=== PATIENT | female | born 1990 | race Caucasian/White ===

== ENCOUNTER 2017-09-20 02:54 | Inpatient (IN) | payer BC, OTHER ==
[~2017-09-20] VITALS: Ht 160 cm; Wt 82.7 kg
[~2017-09-20 02:54] MED LIST: BIRTH CONTROL; CIPR500T87 PO; METR500T PO; ONDA4TAB10 PO
[2017-09-20] MEDS ORDERED: ONDANSETRON 2MG/ML, 2ML IVPush ONE (03:30)
[2017-09-20] MEDS ORDERED: SODIUM CHLORIDE 0.9% 1,000ML IVBOLUS ONE (03:30)
[2017-09-20] MEDS ORDERED: HYDROmorphone 1 MG/ML, 1ML ONE ×2 (03:37→04:08)
[2017-09-20] MEDS ORDERED: ONDANSETRON 2MG/ML, 2ML ONE ×3 (03:37→08:07)
[2017-09-20] MEDS: HYDROmorphone 1 MG/ML, 1ML IVPush PRN ×2 (03:49→04:11)
[2017-09-20 03:51] LABS: HEMATOCRIT 45.1 % (34.6-47.8); HEMOGLOBIN 15.4 g/dL (11.7-16.4); WHITE BLOOD COUNT 16.2 x10^3/uL (3.4-10)
[2017-09-20 04:03] LABS: ASPARTATE AMINO TRANSFERASE 24 U/L (15-37); BLOOD UREA NITROGEN 11 mg/dL (7-18)
[2017-09-20 04:04] LABS: PATH.CAST-FLAG NOT PRESENT; SPERM-FLAG NOT PRESENT; SRC-FLAG NOT PRESENT; XTAL-FLAG NOT PRESENT; YLC-FLAG NOT PRESENT
[2017-09-20] MEDS ORDERED: OMNIPAQUE 350 MG/ML, 100ML BOTTLE ONE (04:31)
[2017-09-20] MEDS ORDERED: ACETAMINOPHEN 325 MG TABLET PO PRN ×2 (05:00→08:30)
[2017-09-20] MEDS ORDERED: HYDROmorphone 2 MG/ML, 1ML IVPush PRN (05:00)
[2017-09-20] MEDS ORDERED: ONDANSETRON 2MG/ML, 2ML IVPush PRN ×2 (05:00→08:30)
[2017-09-20] MEDS ORDERED: D5%-0.9% NACL 1,000 ML IV SCH (05:00)
[2017-09-20] MEDS ORDERED: PIPERACILLIN/TAZO/PMX 4.5GM 100 ML IV ONE (05:30)
[2017-09-20] MEDS ORDERED: HYDROmorphone 2 MG/ML, 1ML ONE (05:59)
[2017-09-20 06:40] VITALS: BP 121/63
[2017-09-20] MEDS ORDERED: EPINEPHRINE 1 MG/ML, 1ML ONE (07:15)
[2017-09-20] MEDS ORDERED: BUPIVACAINE/PF 0.5% ONE (07:15)
[2017-09-20] MEDS ORDERED: GLYCOPYRROLATE 0.2MG/1ML, 5ML ONE (08:07)
[2017-09-20] MEDS ORDERED: DEXAMETHASONE 4 MG/ML, 1ML ONE (08:07)
[2017-09-20] MEDS ORDERED: ROCURONIUM 10 MG/ML,10ML ONE (08:07)
[2017-09-20] MEDS ORDERED: MIDAZOLAM 1 MG/ML, 2ML ONE (08:07)
[2017-09-20] MEDS ORDERED: FENTANYL PF 250 MCG/5ML ONE (08:07)
[2017-09-20] MEDS ORDERED: PROPOFOL 10 MG/ML, 20ML ONE (08:07)
[2017-09-20] MEDS ORDERED: NEOSTIGMINE 1 MG/ML, 10ML ONE (08:07)
[2017-09-20] MEDS ORDERED: KETOROLAC 30 MG/1 ML ONE (08:07)
[2017-09-20] MEDS ORDERED: METOCLOPRAMIDE 5 MG/ML, 2ML ONE (08:07)
[2017-09-20] MEDS ORDERED: MEPERIDINE/PF 25MG/0.5ML IVPush PRN (08:30)
[2017-09-20] MEDS ORDERED: HYDROmorphone 1 MG/ML, 1ML IV PRN (08:30)
[2017-09-20] MEDS ORDERED: OXYcodone 5 MG/5 ML ORAL.SOL UDC PO PRN (08:30)
[2017-09-20] MEDS ORDERED: PROMETHAZINE 25 MG/ML, 1ML IV PRN (08:30)
[2017-09-20] MEDS ORDERED: MIDAZOLAM 1 MG/ML, 2ML IV PRN (08:30)
[2017-09-20] MEDS ORDERED: DIAZEPAM 5 MG/ML, 2ML IVPush PRN (08:30)
[2017-09-20] MEDS ORDERED: hydrALAzine 20 MG/ML, 1ML IV PRN (08:30)
[2017-09-20] MEDS ORDERED: ALBUTEROL/IPRATROPIUM 2.5MG/0.5MG, 3 ML NPPB PRN (08:30)
[2017-09-20] MEDS ORDERED: LORazepam 2 MG/ML, 1ML IVPush PRN (08:30)
[2017-09-20] MEDS ORDERED: LABETALOL 5MG/ML, 20ML IV PRN (08:30)
[2017-09-20] MEDS ORDERED: ACETAMINOPHEN 650 MG/20.3 ML UDC ONE (09:12)
[2017-09-20] MEDS ORDERED: OXYcodone 5 MG/5 ML ORAL.SOL UDC ONE (09:13)
[2017-09-20] MEDS ORDERED: ACETAMINOPHEN 325 MG TABLET ONE (09:13)
[2017-09-20] MEDS ORDERED: FENTANYL PF 100 MCG/2ML ONE (09:13)
[2017-09-20] MEDS: FENTANYL PF 100 MCG/2ML IV PRN ×3 (09:18→09:38)
[2017-09-20] MEDS ORDERED: OXYcodone/APAP 5/325MG TABLET PO PRN (12:00)
[2017-09-20] MEDS ORDERED: morphine SULFATE 10 MG/ML, 1ML ONE ×2 (12:02→14:10)
[2017-09-20] MEDS: MORPHINE SULFATE 4 MG/ML, 1ML IVPush PRN ×2 (12:04→14:14)
[2017-09-20 12:20] VITALS: BP 106/64
[2017-09-20] MEDS ORDERED: POLY17PO5 PO (14:13)
[2017-09-20] MEDS ORDERED: OXYC-302 PO (14:13)
== END 2017-09-20 16:12 | disposition home or self-care (01) | DRG 340 ==
LOC: SUATTDRO 04:47 → ED 05:02 → EDIP 05:10 → 4EST 06:36
PROVIDERS: ADMIT Hospitalist; ATTEND Hospitalist
PROC: 0DTJ4ZZ Resection of Appendix, Percutaneous Endoscopic Approach (ICD-10-PCS; principal; 2017-09-20 08:00)
DX: K35.2 Acute appendicitis with generalized peritonitis (principal); G43.909 Migraine, unspecified, not intractable, without status migrainosus
CPT/HCPCS: 36415; 74177; 80053; 81003; 83690; 84703; 85025; 88304; 96361; 96365; 96366; 96375; 96376; J0171; J1100; J1170; J1885; J2250; J2405; J2543; J2704; J2710; J3010; J3490; Q9967; J2765; J7030

== ENCOUNTER 2019-04-04 21:08 | Outpatient (CLI) | payer BC, OTHER ==
[~2019-04-04] VITALS: Ht 160 cm; Wt 80.0 kg
[~2019-04-04 21:08] MED LIST changes: +OXYC-302 PO; +POLY17PO5 PO
[2019-04-04 21:37] VITALS: BP 127/80
[2019-04-04 21:52] LABS: MICROSCOPIC AUTO
[2019-04-04] MEDS ORDERED: NITR100C56 PO (23:56)
== END 2019-04-05 00:10 | disposition home or self-care (01) ==
LOC: LDOP 21:08
PROVIDERS: ATTEND Obstetrics & Gynecology
DX: O26.893 Other specified pregnancy related conditions, third trimester (principal); R31.9 Hematuria, unspecified; Z3A.28 28 weeks gestation of pregnancy
CPT/HCPCS: 59025; 76815; 81001; 87086; 99211; G0463

== ENCOUNTER 2019-04-27 20:40 | Inpatient (IN) | payer BC, OTHER ==
[~2019-04-27] VITALS: Ht 160 cm; Wt 81.8 kg
[~2019-04-27 20:40] MED LIST changes: +NITR100C56 PO
[2019-04-27 20:46] VITALS: BP 119/72
[2019-04-27] MEDS ORDERED: MAGNESIUM SULF. PMX 20GM/500ML 500 ML IV SCH (22:32)
[2019-04-27] MEDS ORDERED: MAGNESIUM SULF. PMX 20GM/500ML 500 ML IV ONE (22:46)
[2019-04-27] MEDS ORDERED: BETAMETHASONE 6 MG/ML, 5ML IM ONE (22:46)
[2019-04-27] MEDS ORDERED: MAGNESIUM SULFATE PMX 4GM/100M 100 ML ONE (22:46)
[2019-04-27 22:58] LABS: BASOPHILS # (AUTO) 0.03 x10^3/uL (0-0.1); BASOPHILS % (AUTO) 0 % (0-1); EOSINOPHILS # (AUTO) 0.05 x10^3/uL (0-0.4); EOSINOPHILS % (AUTO) 0 % (1-7); LYMPHOCYTES # (AUTO) 1.58 x10^3/uL (1-3.4); LYMPHOCYTES % (AUTO) 14 % (22-44); MD NO; MEAN CORPUSCULAR HGB CONC 33.7 g/dL (32.4-35.8); MEAN CORPUSCULAR VOLUME 91.9 fL (80-100); MONOCYTES % (AUTO) 6 % (2-9); NEUTROPHILS # (AUTO) 9.26 x10^3/uL (1.8-6.8); NEUTROPHILS % (AUTO) 80 % (42-75); PLATELET COUNT 326 x10^3/uL (130-400); RED BLOOD COUNT 3.88 x10^6/uL (3.82-5.3); RED CELL DISTRIBUTION WIDTH 13.3 % (9.6-15.2)
[2019-04-27] MEDS ORDERED: CALCIUM CARBONATE 500 MG TAB.CHEW PO PRN (23:00)
[2019-04-27] MEDS ORDERED: MAGNESIUM SULFATE PMX 4GM/100M 100 ML IVPB ONE (23:00)
[2019-04-27] MEDS ORDERED: MAGNESIUM SULFATE PMX 2GM/50ML 50 ML IVPB ONE (23:00)
[2019-04-27 23:02] LABS: MICROSCOPIC INDICATED
[2019-04-27] MEDS: BETAMETHASONE 6 MG/ML, 5ML IM SCH (23:14)
[2019-04-27] MEDS: LACTATED RINGERS 1,000 ML IV SCH (23:30)
[2019-04-27 23:39] LABS: CULTURE INDICATED? NO
[2019-04-27] MEDS: AMPICILLIN 2 GM in SODIUM CHLORIDE 0.9% 100 ML IV SCH (23:46)
[2019-04-28] MEDS: AMPICILLIN 2 GM in SODIUM CHLORIDE 0.9% 100 ML IV SCH ×3 (05:49→17:56)
[2019-04-28 08:30] VITALS: BP 133/78
[2019-04-28] MEDS ORDERED: DOCUSATE 100 MG CAPSULE ONE ×2 (08:31→22:58)
[2019-04-28] MEDS: DOCUSATE 100 MG CAPSULE PO PRN ×2 (08:33→23:14)
[2019-04-28] MEDS ORDERED: PRENATAL VIT/IRON/FA 1 EACH TABLET ONE (08:34)
[2019-04-28] MEDS: PRENATAL VIT/IRON/FA 1 EACH TABLET PO SCH (08:35)
[2019-04-28] MEDS ORDERED: MAGNESIUM SULF. PMX 20GM/500ML 500 ML IV ONE ×3 (09:31→20:06)
[2019-04-28] MEDS: MAGNESIUM SULF. PMX 20GM/500ML 500 ML IV PRN ×2 (09:57→20:14)
[2019-04-28] MEDS ORDERED: ACETAMINOPHEN 325 MG TABLET ONE ×2 (09:59→18:51)
[2019-04-28] MEDS: ACETAMINOPHEN 325 MG TABLET PO PRN ×2 (10:00→18:53)
[2019-04-28] MEDS: LACTATED RINGERS 1,000 ML IV SCH ×2 (14:17→19:00)
[2019-04-28] MEDS ORDERED: DIPHENHYDRAMINE 25 MG CAPSULE ONE (22:58)
[2019-04-28] MEDS: BETAMETHASONE 6 MG/ML, 5ML IM SCH (23:14)
[2019-04-28] MEDS: DIPHENHYDRAMINE 25 MG CAPSULE PO PRN (23:14)
[2019-04-29] MEDS: AMPICILLIN 2 GM in SODIUM CHLORIDE 0.9% 100 ML IV SCH ×3 (01:58→14:10)
[2019-04-29] MEDS: LACTATED RINGERS 1,000 ML IV SCH ×3 (03:00→19:00)
[2019-04-29] MEDS: PRENATAL VIT/IRON/FA 1 EACH TABLET PO SCH (09:00)
[2019-04-29] MEDS ORDERED: AMOXICILLIN 250 MG CAPSULE ONE (21:18)
[2019-04-29] MEDS: AMOXICILLIN 250 MG CAPSULE PO SCH (21:21)
[2019-04-29] MEDS: AZITHROMYCIN 250 MG TABLET PO SCH (22:01)
[2019-04-29] MEDS ORDERED: DIPHENHYDRAMINE 25 MG CAPSULE ONE (22:04)
[2019-04-29] MEDS: DIPHENHYDRAMINE 25 MG CAPSULE PO PRN (22:05)
[2019-04-29] MEDS: DOCUSATE 100 MG CAPSULE PO PRN (23:00)
[2019-04-30] MEDS: LACTATED RINGERS 1,000 ML IV SCH ×3 (03:00→19:00)
[2019-04-30] MEDS ORDERED: AMOXICILLIN 250 MG CAPSULE ONE ×3 (05:50→20:48)
[2019-04-30] MEDS: AMOXICILLIN 250 MG CAPSULE PO SCH ×3 (06:03→20:50)
[2019-04-30] MEDS: PRENATAL VIT/IRON/FA 1 EACH TABLET PO SCH (09:00)
[2019-04-30] MEDS ORDERED: DOCUSATE 100 MG CAPSULE ONE ×2 (09:07→20:48)
[2019-04-30 09:15] VITALS: BP 123/63
[2019-04-30] MEDS: SODIUM CHLORIDE FLUSH 10ML SYR IVF SCH ×2 (09:33→21:00)
[2019-04-30 20:00] VITALS: BP 132/77
[2019-04-30] MEDS: DOCUSATE 100 MG CAPSULE PO PRN (20:50)
[2019-04-30] MEDS: AZITHROMYCIN 250 MG TABLET PO SCH (22:00)
[2019-05-01] MEDS: LACTATED RINGERS 1,000 ML IV SCH (03:00)
[2019-05-01] MEDS ORDERED: PREN1TAB60 PO (07:53)
[2019-05-01] MEDS ORDERED: AMOXICILLIN 250 MG CAPSULE ONE ×3 (08:36→21:04)
[2019-05-01] MEDS: AMOXICILLIN 250 MG CAPSULE PO SCH ×3 (08:38→21:06)
[2019-05-01] MEDS: PRENATAL VIT/IRON/FA 1 EACH TABLET HOMEMEDPO SCH (08:38)
[2019-05-01] MEDS: SODIUM CHLORIDE FLUSH 10ML SYR IVF SCH ×2 (08:38→21:00)
[2019-05-01 09:32] LABS: BASOPHILS # (AUTO) 0.01 x10^3/uL (0-0.1); BASOPHILS % (AUTO) 0 % (0-1); EOSINOPHILS # (AUTO) 0.05 x10^3/uL (0-0.4); EOSINOPHILS % (AUTO) 1 % (1-7); LYMPHOCYTES # (AUTO) 1.74 x10^3/uL (1-3.4); LYMPHOCYTES % (AUTO) 17 % (22-44); MD NO; MEAN CORPUSCULAR HEMOGLOBIN 30.2 pg (27.0-34.8); MEAN CORPUSCULAR HGB CONC 32.8 g/dL (32.4-35.8); MEAN CORPUSCULAR VOLUME 91.8 fL (80-100); MEAN PLATELET VOLUME 7.8 fL (7.4-10.4); MONOCYTES % (AUTO) 6 % (2-9); NEUTROPHILS # (AUTO) 7.99 x10^3/uL (1.8-6.8); NEUTROPHILS % (AUTO) 77 % (42-75); PLATELET COUNT 308 x10^3/uL (130-400); RED CELL DISTRIBUTION WIDTH 13.5 % (9.6-15.2)
[2019-05-01 19:05] VITALS: BP 119/79
[2019-05-01] MEDS: DOCUSATE 100 MG CAPSULE PO PRN (21:07)
[2019-05-01] MEDS ORDERED: DIPHENHYDRAMINE 25 MG CAPSULE ONE (21:35)
[2019-05-01] MEDS: DIPHENHYDRAMINE 25 MG CAPSULE PO PRN (21:38)
[2019-05-01] MEDS ORDERED: AZITHROMYCIN 250 MG TABLET PO SCH (22:00)
[2019-05-02] MEDS ORDERED: TERBUTALINE 1 MG/ML, 1ML ONE (03:53)
[2019-05-02] MEDS ORDERED: TERBUTALINE 1 MG/ML, 1ML SQ ONE (04:00)
[2019-05-02] MEDS: LACTATED RINGERS 1,000 ML IV SCH ×6 (04:00→20:30)
[2019-05-02] MEDS ORDERED: LACTATED RINGERS 1,000 ML IVBOLUS ONE (04:30)
[2019-05-02] MEDS ORDERED: OXYTOCIN 30U/ 0.9% NaCL 500ML 500 ML IV ONE (06:13)
[2019-05-02] MEDS ORDERED: FENTANYL/BUPIV./NS/PF 250 ML EPIDCONT SCH (06:15)
[2019-05-02] MEDS ORDERED: FENTANYL PF 100 MCG/2ML ONE (06:16)
[2019-05-02] MEDS ORDERED: ALUMINUM/MAG/SIMETHICONE 30 ML UDC PO PRN (06:30)
[2019-05-02] MEDS ORDERED: TERBUTALINE 1 MG/ML, 1ML SQ PRN (06:30)
[2019-05-02] MEDS ORDERED: ONDANSETRON 2MG/ML, 2ML IVPush PRN (06:30)
[2019-05-02] MEDS ORDERED: METOCLOPRAMIDE 5 MG/ML, 2ML IVPush PRN (06:30)
[2019-05-02] MEDS ORDERED: FENTANYL PF 100 MCG/2ML IVPush PRN (06:30)
[2019-05-02] MEDS ORDERED: TERBUTALINE 1 MG/ML, 1ML IVPush PRN (06:30)
[2019-05-02] MEDS ORDERED: FENTANYL PF 100 MCG/2ML IV PRN (06:30)
[2019-05-02] MEDS ORDERED: SODIUM CITRATE/CITRIC ACID 15 ML UDC PO PRN (06:30)
[2019-05-02 06:40] LABS: MEAN CORPUSCULAR HEMOGLOBIN 31.2 pg (27.0-34.8); MEAN CORPUSCULAR HGB CONC 33.8 g/dL (32.4-35.8); MEAN CORPUSCULAR VOLUME 92.2 fL (80-100); MEAN PLATELET VOLUME 8.1 fL (7.4-10.4); PLATELET COUNT 339 x10^3/uL (130-400); RED CELL DISTRIBUTION WIDTH 13.4 % (9.6-15.2)
[2019-05-02] MEDS ORDERED: ONDANSETRON 2MG/ML, 2ML ONE (06:41)
[2019-05-02] MEDS ORDERED: BUPIVACAINE 0.25% ONE (06:50)
[2019-05-02] MEDS ORDERED: LIDOCAINE/PF 1.5%-EPI 1:200K, 30ML ONE (06:52)
[2019-05-02 06:55] LABS: BASOPHILS # (AUTO) 0.07 x10^3/uL (0-0.1); BASOPHILS % (AUTO) 0 % (0-1); EOSINOPHILS # (AUTO) 0.01 x10^3/uL (0-0.4); EOSINOPHILS % (AUTO) 0 % (1-7); LYMPHOCYTES # (AUTO) 1.59 x10^3/uL (1-3.4); LYMPHOCYTES % (AUTO) 9 % (22-44); MD SCAN; MONOCYTES # (AUTO) 0.99 x10^3/uL (0.2-0.8); MONOCYTES % (AUTO) 6 % (2-9); NEUTROPHILS # (AUTO) 14.93 x10^3/uL (1.8-6.8); NEUTROPHILS % (AUTO) 85 % (42-75)
[2019-05-02] MEDS: D5%-LACTATED RINGERS 1,000 ML IV SCH ×2 (07:35→14:13)
[2019-05-02] MEDS ORDERED: NEWBORN KIT ONE (08:22)
[2019-05-02] MEDS ORDERED: LIDOCAINE 1%, 20ML ONE (08:23)
[2019-05-02] MEDS ORDERED: MISOPROSTOL 200 MCG TABLET ONE (08:24)
[2019-05-02] MEDS: AMOXICILLIN 250 MG CAPSULE PO SCH ×2 (09:00→16:00)
[2019-05-02] MEDS: PRENATAL VIT/IRON/FA 1 EACH TABLET HOMEMEDPO SCH (09:00)
[2019-05-02] MEDS: SODIUM CHLORIDE FLUSH 10ML SYR IVF SCH (09:00)
[2019-05-02] MEDS ORDERED: AMPICILLIN 2 GM in SODIUM CHLORIDE 0.9% 100 ML IV SCH (09:30)
[2019-05-02] MEDS ORDERED: OXYTOCIN 30U/ 0.9% NaCL 500ML 500 ML ONE ×2 (11:00→14:01)
[2019-05-02] MEDS ORDERED: MISOPROSTOL 200 MCG TABLET PR PRN (13:30)
[2019-05-02] MEDS ORDERED: DOCUSATE 100 MG CAPSULE PO PRN (13:30)
[2019-05-02] MEDS ORDERED: ACETAMINOPHEN 325 MG TABLET PO PRN (13:30)
[2019-05-02] MEDS ORDERED: ONDANSETRON 2MG/ML, 2ML IV PRN (13:30)
[2019-05-02] MEDS ORDERED: OXYcodone IR 5MG TABLET PO PRN (13:30)
[2019-05-02] MEDS ORDERED: IBUPROFEN 600 MG TABLET ONE (14:00)
[2019-05-02] MEDS: IBUPROFEN 600 MG TABLET PO PRN ×2 (14:04→22:10)
[2019-05-02] MEDS: OXYTOCIN 30U/ 0.9% NaCL 500ML 500 ML IV SCH ×2 (15:09→23:14)
[2019-05-02 16:00] VITALS: BP 123/78
[2019-05-02 19:15] VITALS: BP 126/80
[2019-05-02] MEDS: DOCUSATE 100 MG CAPSULE PO PRN (22:10)
[2019-05-02 22:32] LABS: BASOPHILS # (AUTO) 0.06 x10^3/uL (0-0.1); BASOPHILS % (AUTO) 0 % (0-1); EOSINOPHILS # (AUTO) 0.04 x10^3/uL (0-0.4); EOSINOPHILS % (AUTO) 0 % (1-7); LYMPHOCYTES # (AUTO) 1.45 x10^3/uL (1-3.4); LYMPHOCYTES % (AUTO) 10 % (22-44); MD NO; MEAN CORPUSCULAR HEMOGLOBIN 30.4 pg (27.0-34.8); MEAN PLATELET VOLUME 7.8 fL (7.4-10.4); MONOCYTES # (AUTO) 0.78 x10^3/uL (0.2-0.8); MONOCYTES % (AUTO) 5 % (2-9); NEUTROPHILS # (AUTO) 12.53 x10^3/uL (1.8-6.8); NEUTROPHILS % (AUTO) 84 % (42-75); PLATELET COUNT 317 x10^3/uL (130-400); RED BLOOD COUNT 3.69 x10^6/uL (3.82-5.3); RED CELL DISTRIBUTION WIDTH 13.7 % (9.6-15.2)
[2019-05-03 00:10] VITALS: BP 103/63
[2019-05-03] MEDS: LACTATED RINGERS 1,000 ML IV SCH ×3 (01:30→11:30)
[2019-05-03 03:45] VITALS: BP 113/71
[2019-05-03 07:30] VITALS: BP 117/81
[2019-05-03] MEDS: PRENATAL VIT/IRON/FA 1 EACH TABLET HOMEMEDPO SCH ×2 (07:47→17:23)
[2019-05-03] MEDS: IBUPROFEN 600 MG TABLET PO PRN ×2 (07:47→21:49)
[2019-05-03] MEDS: OXYcodone/APAP 5/325MG TABLET PO PRN ×2 (07:47→21:48)
[2019-05-03] MEDS: DOCUSATE 100 MG CAPSULE PO PRN ×2 (07:48→21:48)
[2019-05-03] MEDS ORDERED: PRENATAL VIT/IRON/FA 1 EACH TABLET PO SCH (09:00)
[2019-05-03] MEDS: OXYTOCIN 30U/ 0.9% NaCL 500ML 500 ML IV SCH (09:14)
[2019-05-03 12:00] VITALS: BP 110/78
[2019-05-03 19:20] VITALS: BP 123/75
[2019-05-04 07:56] VITALS: BP 127/73
[2019-05-04] MEDS ORDERED: IBUP-1222 PO (09:28)
== END 2019-05-04 14:30 | disposition home or self-care (01) | DRG 807 ==
LOC: LDOP 20:40 → LDIP 21:30 → 2NW 05-02 14:42 → LDIP 05-02 14:42 → 2NW 05-02 15:48
PROVIDERS: ADMIT Obstetrics & Gynecology; ATTEND Obstetrics & Gynecology
PROC: 10E0XZZ Delivery of Products of Conception, External Approach (ICD-10-PCS; principal; 2019-05-02)
PROC: 0HQ9XZZ Repair Perineum Skin, External Approach (ICD-10-PCS; 2019-05-02)
PROC: 0UQMXZZ Repair Vulva, External Approach (ICD-10-PCS; 2019-05-02)
PROC: 3E0R3BZ Introduction of Anesthetic Agent into Spinal Canal, Percutaneous Approach (ICD-10-PCS; 2019-05-02)
PROC: 00HU33Z Insertion of Infusion Device into Spinal Canal, Percutaneous Approach (ICD-10-PCS; 2019-05-02)
DX: O42.113 Preterm premature rupture of membranes, onset of labor more than 24 hours following rupture, third trimester (principal); Z37.0 Single live birth; Z90.49 Acquired absence of other specified parts of digestive tract; O70.0 First degree perineal laceration during delivery; O71.82 Other specified trauma to perineum and vulva; Z3A.32 32 weeks gestation of pregnancy
CPT/HCPCS: 36415; J3490; J7121; 76805; 81001; 82803; 83735; 84112; 85025; 86850; 86900; 87081; 89060; G0378; J0290; J0702; J2405; J3010; J2590; J3105; J3475; J7120; Q0114; Q0163

== ENCOUNTER 2020-11-21 17:15 | Emergency (ER) | payer BC, OTHER ==
[~2020-11-21] VITALS: Ht 160 cm; Wt 76.8 kg
[~2020-11-21 17:15] MED LIST changes: +IBUP-1222 PO; -OXYC-302 PO; +OXYC1TAB14 PO; +PREN1TAB60 PO
[2020-11-21] MEDS ORDERED: LACTATED RINGERS 1,000 ML IVBOLUS ONE (18:00)
[2020-11-21] MEDS ORDERED: PROMETHAZINE 25 MG/ML, 1ML IM ONE (18:00)
[2020-11-21] MEDS ORDERED: SODIUM CHLORIDE FLUSH 10ML SYR IVF ONE (18:00)
[2020-11-21 18:08] LABS: BASOPHILS % (AUTO) 0 % (0-1); EOSINOPHILS % (AUTO) 0 % (1-7); LYMPHOCYTES % (AUTO) 18 % (22-44); MEAN CORPUSCULAR HEMOGLOBIN 32.4 pg (27.0-34.8); MEAN CORPUSCULAR HGB CONC 34.6 g/dL (32.4-35.8); MEAN PLATELET VOLUME 7.2 fL (7.4-10.4); MONOCYTES % (AUTO) 7 % (2-9); NEUTROPHILS % (AUTO) 75 % (42-75); PLATELET COUNT 335 x10^3/uL (130-400); RED BLOOD COUNT 4.09 x10^6/uL (3.82-5.3); RED CELL DISTRIBUTION WIDTH 13.8 % (9.6-15.2)
[2020-11-21 18:09] LABS: MD NO
[2020-11-21 18:10] LABS: INTERNATIONAL NORMALIZED RATIO 0.96 (0.93-1.1); PROTHROMBIN TIME 10.3 Seconds (9.6-11.5)
[2020-11-21 18:11] LABS: ALANINE AMINOTRANSFERASE 27 U/L (12-78); ALBUMIN 3.9 g/dL (3.4-5.0); ANION GAP 8 mmol/L (5-15); CALCIUM 9.7 mg/dL (8.5-10.1); CHLORIDE 106 mmol/L (98-107); CREATININE 0.75 mg/dL (0.55-1.02)
[2020-11-21] MEDS ORDERED: PROMETHAZINE 25 MG/ML, 1ML ONE (18:14)
[2020-11-21 18:15] LABS: ALKALINE PHOSPHATASE 65 U/L (45-117); BILIRUBIN,TOTAL 0.4 mg/dL (0.2-1.0); TOTAL PROTEIN 8.1 g/dL (6.4-8.2)
--- NOTE | 2020-11-21 18:22 | NUR ---
pt in bed, small emsis 50 mls with traces of red. started 18 piv. iv fluids and meds done
[2020-11-21] MEDS ORDERED: FAMOTIDINE 20 MG/2 ML IVPush ONE (19:00)
[2020-11-21] MEDS ORDERED: FAMOTIDINE 20 MG/2 ML ONE (19:07)
[2020-11-21 19:25] VITALS: BP 111/50
--- NOTE | 2020-11-21 19:27 | NUR ---
pt in bed , states her n/v is 90% better.
--- NOTE | 2020-11-21 19:49 | NUR ---
PT WALKED OUT SELF WITH STEADY GAIT. D/C PIV. IF S&S WORSEN RETURN TO THE ER.
== END 2020-11-21 19:57 | disposition home or self-care (01) ==
LOC: ED 18:13
DX: E86.0 Dehydration (principal); R11.2 Nausea with vomiting, unspecified; R19.7 Diarrhea, unspecified; R10.9 Unspecified abdominal pain; R42 Dizziness and giddiness; Z90.89 Acquired absence of other organs
CPT/HCPCS: 36415; 80053; 83690; 84703; 85025; 85610; 93005; 96361; 96372; 96374; 99284; J2550; J7120